=== PATIENT | male | born 1995 | race African-American/Black ===

== ENCOUNTER 2021-01-09 11:05 | Emergency (ER) | payer MEDICAID ==
[~2021-01-09] VITALS: Ht 185.4 cm; Wt 122.0 kg
[2021-01-09] MEDS ORDERED: IBUPROFEN 600MG TABLET PO STA (11:28)
[2021-01-09 11:38] VITALS: BP 150/104
[2021-01-09] MEDS ORDERED: CEPH500C2 PO (11:50)
[2021-01-09] MEDS ORDERED: CIPDEX LEFT EAR (11:50)
[2021-01-09] MEDS ORDERED: IBUP-2029 PO (11:50)
== END 2021-01-09 12:27 | disposition home or self-care (01) ==
LOC: ER 11:05
DX: H60.92 Unspecified otitis externa, left ear (principal)
CPT/HCPCS: 99283